=== PATIENT | female | born 1980 | race Caucasian/White ===

== ENCOUNTER 2023-05-16 12:28 | Outpatient (CLI) | payer BC | END 2023-05-16 12:29 | disposition home or self-care (01) | LOC: CSHMAMMO 12:28 | PROVIDERS: ATTEND Family Medicine | DX: Z12.31 Encounter for screening mammogram for malignant neoplasm of breast (principal) | CPT/HCPCS: 77063; 77067 ==

== ENCOUNTER 2023-06-29 09:18 | Outpatient (CLI) | payer BC ==
[2023-06-29] MEDS ORDERED: Iopamidol 370 76% 100 ML VIAL ONE (10:22)
== END 2023-06-29 09:19 | disposition home or self-care (01) ==
LOC: CSHCT 09:18
PROVIDERS: ATTEND Otolaryngology Plastic Surgery within the Head & Neck
DX: E21.3 Hyperparathyroidism, unspecified (principal); R93.9 Diagnostic imaging inconclusive due to excess body fat of patient
CPT/HCPCS: 70491; Q9967